=== PATIENT | female | born 1985 | race Caucasian/White ===

== ENCOUNTER 2017-08-25 19:49 | Emergency (ER) | payer SELFPAY ==
[2017-08-25 19:54] VITALS: BP 121/81; BMI 24.7
[2017-08-25] MEDS ORDERED: ULTRAM PO ONE (21:09)
[2017-08-25] MEDS ORDERED: CLEOCIN PO ONE (21:09)
[2017-08-25] MEDS ORDERED: TORADOL TAB PO ONE ×2 (21:09→21:11)
[2017-08-25] MEDS ORDERED: CLEOCIN ONE (21:11)
[2017-08-25] MEDS ORDERED: ULTRAM ONE (21:12)
--- NOTE | 2017-08-25 21:23 | DR.GENAD ---
HPI - PCP Primary Care Physician: NFSamir - HPI Comment HPI Comment: PATIENT SWELLING INCREASING AND PAIN IS GETTING WORSE. NO FEVER. - Complaint/Symptoms Chief Complaint Doctors Comments: ABSCESS LEFT LABIS TIMES 3 DAYS. Chief Complaint:: HUGE KNOT ON THE LEFT SIDE OF MY VAGINA ON MY LIP GOES INTO THE CREASE OF MY GROIN. - Nurses notes reviewed Nurses Notes Review: Yes - Source History Provided: Patient - Mode of Arrival Mode of Arrival: Ambulatory - Timing Onset of Chief Complaint: 08/22/17 Came on: Suddenly - Duration Duration: Constant Duration: Days - Severity Severity: Moderate PMH - PMH Past Medical History: No Past Surgical History: No - Family History History of Family Medical Conditions: No - Social History Type of Tobacco Use: Cigarettes Alcohol Use: None Do you use any recreational Drugs:: No Lives With: Spouse Lives Where: Home - infectious screening Have you traveled outside the country in the last 6 months?: No Isolation: Standard ROS - Review of Systems Constitutional: No Symptoms Reported Eyes: No Symptoms Reported ENTM: No Symptoms Reported Respiratoy: No Symptoms Reported Cardiovascular: No Symptoms Reported Gastrointestinal/Abdominal: No Symptoms Reported Genitourinary: Pain, Other (LT LABIA ABSCESS.) Neurological: No Symptoms Reported Musculoskeletal: Muscle Pain Integumentary: Other (LT LABIA ABSCESS.) Hematologic/Lymphatic: No Symptoms Reported Endocrine: No Symptoms Reported All Other Systems: Reviewed and Negative PE - Vital Signs Vitals: Temperature 97.8 F Pulse Rate 100 Respiratory Rate 18 Blood Pressure 121/81 O2 Sat by Pulse Oximetry 99 - General Limitations: No Limitations General Appearance: Alert - Head Head Exam: Normal Inspection - Eyes Eye exam: Normal Appearance - ENT ENT Exam: Normal External Ear Exam External Ear Exam: Normal External Inspection TM/Canal Exam: Bilateral Normal Nose Exam: Normal Nose Exam Mouth Exam: Normal Inspection Throat Exam: Normal Inspection - Neck Neck Exam: Normal Inspection - Chest Chest Inspection: Symmetric Chest Wall Rise - Respiratory Respiratory Exam: Normal Lung Sounds Bilat Respiratory Exam: Bilateral Clear to Auscultation - Cardiovascular Cardiovascular Exam: Regular Rate, Normal Rhythm, Normal Heart Sounds - Abdominal Exam Abdominal Exam: Normal Bowel Sounds, Soft, Other (LT LABIA ABSCESS SIZE OF CHICHEN EGG AND CELLULITIS.). negative: Tenderness - Extremities Extremities Exam: Normal Inspection - Back Back Exam: Normal Inspection - Neurologic Neurological Exam: Alert, Oriented X3 - Skin Skin Exam: Erythema MDM - Differential Diagnosis Differential Diagnosis: ABSCESS LT LABIA, CELLU;LITIS Course - Treatment Treatment: SEE ORDERS. - Education/Counseling Education/Counseling: Patient, Education Educated On: Treatment, Diagnosis, Needs for Follow Up - Diagnosis Discharge Problem: Abscess of left genital labia Cellulitis Qualifiers: Site of cellulitis: unspecified site Qualified Code(s): L03.90 - Cellulitis, unspecified - Discharge Plan Disposition: HOME, SELF-CARE Condition: Stable Prescriptions: Doxycycline Hyclate [Vibramycin] 100 mg PO BID #20 capsule Ibuprofen [MOTRIN TAB 600 MG *] 600 mg PO TID PRN #20 tab PRN Reason: Pain/Inflammation Tramadol HCl 50 mg PO Q8H #15 tablet - Follow ups/Referrals Follow ups/Referrals: NFD,None [Primary Care Provider] - 3 days - Instructions Instructions: Abscess, [id number], Cellulitis, Adult, [id number] Additional Instructions: RETURN TO ED IF WORSE.
== END 2017-08-25 21:33 | disposition home or self-care (01) ==
LOC: ER 20:01
DX: N76.4 Abscess of vulva (principal); L03.90 Cellulitis, unspecified
CPT/HCPCS: 99282